=== PATIENT | female | born 2000 ===

== ENCOUNTER 2020-12-31 11:34 | Emergency (ER) | payer OTHER ==
[2021-01-01 02:27] LABS: SARS-CoV-2 PCR by NAA Not Detected (NotDetected)
== END 2020-12-31 12:56 | disposition home or self-care (01) ==
LOC: ERS 11:34
DX: R09.81 Nasal congestion (principal); R53.83 Other fatigue; R10.9 Unspecified abdominal pain; Z20.822 Contact with and (suspected) exposure to COVID-19
CPT/HCPCS: 99283; U0003; U0005